=== PATIENT | female | born 1935 ===

== ENCOUNTER 2017-02-01 10:33 | Emergency (ER) | payer MEDICARE, OTHER ==
--- NOTE | 2017-02-01 11:30 | C.PDOC ---
History Of Present Illness 81 y/o female presents to ED with complaints of left leg swelling for 1 week. Patient visited Orthopedic this morning for arthritis and knee pain, which she usually gets shot for and he sent her to ED for an ultrasound after noticing left leg swelling.Patient denies numbness, pain, weakness, sob, chest pain or any other complaints at this time. Time Seen by Provider: 02/01/17 11:10 Chief Complaint (Nursing): Lower Extremity Problem/Injury History Per: Patient History/Exam Limitations: no limitations Onset/Duration Of Symptoms: Days Current Symptoms Are (Timing): Still Present Past Medical History Reviewed: Historical Data, Nursing Documentation, Vital Signs Vital Signs: Last Vital Signs Temp 98.1 F 02/01/17 13:11 Pulse 68 02/01/17 13:11 Resp 18 02/01/17 13:11 BP 170/77 H 02/01/17 13:11 Pulse Ox 98 02/01/17 13:11 - Medical History PMH: Arthritis, HTN, Hypercholesterolemia, Hypothyroidism Family History: States: Unknown Family Hx - Social History Hx Tobacco Use: No Hx Alcohol Use: No Hx Substance Use: No - Immunization History Hx Tetanus Toxoid Vaccination: Yes (11/2009) Hx Influenza Vaccination: Yes (2015) Hx Pneumococcal Vaccination: Yes (07/2012) Review Of Systems Constitutional: Negative for: Weakness, Malaise Cardiovascular: Negative for: Chest Pain, Palpitations, Orthopnea Respiratory: Negative for: Shortness of Breath, Wheezing Gastrointestinal: Negative for: Vomiting, Abdominal Pain, Diarrhea Musculoskeletal: Negative for: Leg Pain Neurological: Negative for: Weakness, Headache, Dizziness Physical Exam - Physical Exam Appears: Non-toxic, No Acute Distress Skin: Warm, Dry, No Diaphoretic, No Pale Head: Atraumatic, Normacephalic Eye(s): bilateral: Normal Inspection Oral Mucosa: Moist Neck: Normal ROM Chest: Symmetrical Cardiovascular: Rhythm Regular, No Murmur Respiratory: Normal Breath Sounds, No Rales, No Rhonchi, No Wheezing Extremity: Normal ROM, No Tenderness, No Calf Tenderness, Swelling (left lower extremity swelling), Other (Varicose Veins bilateral) Pulses: Left Dorsalis Pedis: Normal, Right Dorsalis Pedis: Normal Neurological/Psych: Oriented x3, Normal Speech Gait: Steady ED Course And Treatment O2 Sat by Pulse Oximetry: 99 (Room air ) Pulse Ox Interpretation: Normal Medical Decision Making Medical Decision Making: Venous doppler performed and negative for any DVT 1252 spoke with Emilio TURNER and discussed negative Doppler result. He states patient can follow up with PCP Dr De aL Vega Patient remained afebrile alert and oriented with stable vital signs during ER evaluation. Disposition Counseled Patient/Family Regarding: Need For Followup, Rx Given - Disposition Disposition: HOME/ ROUTINE Disposition Time: 12:56 Condition: STABLE Additional Instructions: Your doppler study was negative, no DVT Please follow up with your primary DR De La Vega in few days Instructions: Leg Edema (ED) - POA Present On Arrival: None - Clinical Impression Clinical Impression: Leg edema - PA / RN [id number] / Resident Statement MD/DO has reviewed & agrees with the documentation as recorded. - Scribe Statement The provider has reviewed the documentation as recorded by the Aurora Galalgher All medical record entries made by the Aurora were at my direction and personally dictated by me. I have reviewed the chart and agree that the record accurately reflects my personal performance of the history, physical exam, medical decision making, and the department course for this patient. I have also personally directed, reviewed, and agree with the discharge instructions and disposition.
[2017-02-01 13:12] VITALS: BP 170/77; PULSE 68; RESP 18; TEMP 98.1
[2017-02-01 18:25] VITALS: O2SAT 99
--- NOTE | 2017-02-05 10:11 | VASCLAB ---
PROCEDURE: Left Lower Extremity Venous Duplex Exam. HISTORY: left leg swelling, poss DVT PRIORS: None. TECHNIQUE: Left common femoral, femoral, popliteal and posterior tibial, peroneal and great saphenous veins were evaluated. Flow was assessed with color Doppler, compressibility, assessment of phasic flow and augmentation response. Report prepared by ophthalmic technologist. FINDINGS: LEFT: 1. Common Femoral Vein: 1.1. Compressibility - Fully compressible: Thrombus - None : Flow - Phasic: Augmentation -Normal: Reflux - None. 2. Femoral Vein: 2.1. Compressibility - Fully compressible: Thrombus - None: Flow - Phasic: Augmentation -Normal: Reflux - None. 3. Popliteal Vein: 3.1. Compressibility - Fully compressible: Thrombus - None: Flow - Phasic: Augmentation -Normal: Reflux - None. 4. Posterior Tibial Vein: 4.1. Compressibility - Fully compressible: Thrombus - None: Flow - Phasic: Augmentation -Normal: Reflux - None. 5. Peroneal Vein: 5.1. Compressibility - Fully compressible: Thrombus - None: Flow - Phasic: Augmentation -Normal: Reflux - None. 6. Great Saphenous Vein: 6.1. Compressibility - Fully compressible: Thrombus - None: Flow - Phasic: Augmentation - Normal: Reflux - Severe. OTHER FINDINGS: Severe valvular incompetence of the left greater saphenous vein. IMPRESSION: No evidence of deep or superficial vein thrombosis of the left lower extremity with excellent venous flow. Normal venous flow noted in the right common femoral vein.
== END 2017-02-01 13:12 | disposition home or self-care (01) ==
LOC: C.ER 10:33
DX: R60.0 Localized edema (principal)

== ENCOUNTER 2018-10-04 06:10 | Emergency (ER) | payer MEDICARE, OTHER ==
--- NOTE | 2018-10-04 06:37 | C.PDOC ---
History Of Present Illness 83 year old female with PMHx of HTN presents to the ED for evaluation of palpitations that started [employer]IST. Patient also reports some dizziness that has now resolved. Patient denies fever, chills, headache, visual changes, SOB, CP, weakn ess, numbness. <Suzi Peterson - Last Filed: 10/04/18 06:47> History Per: Patient History/Exam Limitations: no limitations Onset/Duration Of Symptoms: Hrs Current Symptoms Are (Timing): Still Present Associated Symptoms: Dizziness (resolved) Quality Of Symptoms: Rapid Heart Rate Recent travel outside of the [place]: No Additional History Per: Patient <Suzi Peterson - Last Filed: 10/04/18 06:47> <Sarah Jaffe - Last Filed: 10/04/18 10:17> Time Seen by Provider: 10/04/18 06:36 Chief Complaint (Nursing): Palpitations Past Medical History Reviewed: Historical Data, Nursing Documentation, Vital Signs Vital Signs: Last Vital Signs Temp 98.1 F 10/04/18 06:23 Pulse 67 10/04/18 06:23 Resp 10/04/18 06:23 BP 172/76 H 10/04/18 06:23 Pulse Ox 97 10/04/18 06:23 - Medical History PMH: Arthritis, HTN, Hypercholesterolemia, Hypothyroidism Surgical History: No Surg Hx Family History: States: Unknown Family Hx - Social History Hx Tobacco Use: No Hx Alcohol Use: No Hx Substance Use: No - Immunization History Hx Tetanus Toxoid Vaccination: Yes (11/2009) Hx Influenza Vaccination: Yes (2015) Hx Pneumococcal Vaccination: Yes (07/2012) <Suzi Peterson - Last Filed: 10/04/18 06:47> Vital Signs: Last Vital Signs Temp 98.1 F 10/04/18 06:23 Pulse 72 10/04/18 07:00 Resp 10/04/18 06:23 BP 172/76 H 10/04/18 06:23 Pulse Ox 97 10/04/18 06:50 <Sarah Jaffe - Last Filed: 10/04/18 10:17> Review Of Systems Constitutional: Negative for: Fever, Chills Cardiovascular: Positive for: Palpitations. Negative for: Chest Pain Respiratory: Negative for: Shortness of Breath Gastrointestinal: Negative for: Nausea, Vomiting, Abdominal Pain Skin: Negative for: Rash Neurological: Positive for: Dizziness. Negative for: Weakness, Numbness, Headache <Suzi Peterson - Last Filed: 10/04/18 06:47> Physical Exam - Physical Exam Appears: Non-toxic, No Acute Distress Skin: Normal Color, Warm, Dry Head: Atraumatic, Normacephalic Eye(s): bilateral: Normal Inspection Oral Mucosa: Moist Neck: Normal ROM, Supple Chest: Symmetrical Cardiovascular: Rhythm Regular Respiratory: Normal Breath Sounds, No Rales, No Rhonchi, No Wheezing Gastrointestinal/Abdominal: Soft, No Tenderness, No Guarding, No Rebound Extremity: Normal ROM, No Tenderness, No Swelling Neurological/Psych: Oriented x3, Normal Speech, Normal Cognition Gait: Steady <Suzi Peterson Last Filed: 10/04/18 06:47> ED Course And Treatment ECG: Interpreted By Me, Viewed By Me ECG Rhythm: Sinus Rhythm Rate From EC (BPM) O2 Sat by Pulse Oximetry: 97 (ON RA) Pulse Ox Interpretation: Normal <Suzi Peterson Last Filed: 10/04/18 06:47> - Laboratory Results Result Diagrams: 10/04/18 07:31 10/04/18 07:08 Lab Results: Troponin I < 0.0120 ng/mL (0.00-0.120) 10/04/18 07:08 Total Bilirubin 1.6 mg/dL (0.2-1.3) H 10/04/18 07:08 AST 78 U/L (14-36) H D 10/04/18 07:08 ALT < 6 U/L (9-52) L D 10/04/18 07:08 Alkaline Phosphatase 144 U/L (38-126) H D 10/04/18 07:08 Total Protein 9.2 g/dL (6.3-8.3) H 10/04/18 07:08 Albumin 4.6 g/dL (3.5-5.0) 10/04/18 07:08 Globulin 4.6 gm/dL (2.2-3.9) H 10/04/18 07:08 Albumin/Globulin Ratio 1.0 (1.0-2.1) 10/04/18 07:08 <Sarah Jaffe - Last Filed: 10/04/18 10:17> Progress - Data Reviewed Data Reviewed: Lab, Diagnostic imaging, EKG, Old records <Suzi Peterson Last Filed: 10/04/18 06:47> Medical Decision Making Medical Decision Making: Plan: * EKG * Labs * CXR <Suzi Peterson Filed: 10/04/18 06:47> Disposition - Disposition Disposition Time: 07:00 <Suzi Peterson Last Filed: 10/04/18 06:47> - POA Present On Arrival: None <Sarah Jaffe - Last Filed: 10/04/18 10:17> - Disposition Referrals: Nicho James MD [Staff Provider] - Disposition: HOME/ ROUTINE Condition: STABLE Instructions: Palpitations Forms: [email or web address] (Danish) - Clinical Impression Clinical Impression: Palpitations, Chest pain - Scribe Statement The provider has reviewed the documentation as recorded by the Scribe Yann Buck All medical record entries made by the Scribe were at my direction and personally dictated by me. I have reviewed the chart and agree that the record accurately reflects my personal performance of the history, physical exam, medical decision making, and the department course for this patient. I have also personally directed, reviewed, and agree with the discharge instructions and disposition. <Suzi Peterson Last Filed: 10/04/18 06:47> - Scribe Statement The provider has reviewed the documentation as recorded by the Scribe <Sarah Jaffe - Last Filed: 10/04/18 10:17> Physician Patient Turnover Patient Signed Over To: Sarah Jaffe Handoff Comments: FU LABS, CXR <Suzi Peterson Filed: 10/04/18 06:47> Addendum Addendum: 10/04/18 09:49 Dr. Jaffe Notes: HPI: 83 year old female was endorsed to me By Dr. Peterson at 7am after the end of her shift. The patient reports waking up at 5am today to use the bath with when she began to experience palpitations to left side of the chest. Notes PMD is Dr. James. The patient denies chest pain, dizziness, headache, nausea, vomiting, shortness of breath, and any other associated symptoms. In the ED the patients symptoms have resolved. Appears: Non-toxic, No Acute Distress Skin: Warm, Dry, No Rash Head: Atraumatic, Normacephalic Eye(s): bilateral: Normal Inspection Oral Mucosa: Moist Neck: Normal ROM Chest: Symmetrical Cardiovascular: Rhythm Regular, No Murmur Respiratory: Normal Breath Sounds, No Rales, No Rhonchi, No Wheezing Gastrointestinal/Abdominal: Soft, No Tenderness, No Guarding Extremity: Bilateral: Atraumatic, Normal Color and Temperature Neurological/Psych: Oriented x3, Normal Speech Initial Plan: -EKG Progress/Update: EKG: sinus rhythm. rate: 67. consistent with prior EKG. CXR: preliminary reading: mild pulmonary congestion, although poor imaging. CXR Results: COMPARISON: 07/14/2014 Findings: Mild to moderate venous congestion. Patchy increased markings at the lung bases with some mild nodularity at the right upper lung zone and right lung base. Tortuous ectatic aorta. Mild cardiomegaly. Degenerative changes in the spine and shoulders. Impression: Mild to moderate venous congestion. Patchy increased markings at the lung bases with some mild nodularity at the right upper lung zone and right lung base. Tortuous ectatic aorta. Mild cardiomegaly. Statement: All medical record entries made by the Scribe (Candi Noble) were at my direction and personally dictated by me. I have reviewed the chart and agree that the record accurately reflects my personal performance of the history, physical exam, medical decision making, and the department course for this patient. I have also personally directed, reviewed, and agree with the discharge instructions and disposition. <Sarah Jaffe - Last Filed: 10/04/18 10:17>
[2018-10-04 07:35] LABS: BASO % 0.6 % (0.0-2.0); EOS # 0.2 K/uL (0.0-0.7); EOS % 3.1 % (0.0-4.0); HEMOGLOBIN 11.4 g/dL (11.0-16.0); LYMPH # 0.9 K/uL (1.0-4.3); LYMPH % 13.8 % (20.0-40.0); MEAN CELL VOLUME 92.3 fL (81.0-99.0); MEAN CORPUSCULAR HEMOGLOBIN 31.2 pg (27.0-31.0); MEAN CORPUSCULAR HGB CONC 33.8 g/dL (33.0-37.0); MEAN PLATELET VOLUME 7.6 fL (7.2-11.7); MONO # 0.8 K/uL (0.0-0.8); MONO % 11.2 % (0.0-10.0); NEUT # 4.8 K/uL (1.8-7.0); NEUT % 71.3 % (50.0-75.0); RBC 3.65 Mil/uL (3.80-5.20); RED CELL DISTRIBUTION WIDTH 13.1 % (11.5-14.5); WHITE BLOOD COUNT 6.8 K/uL (4.8-10.8)
[2018-10-04 07:36] LABS: BLOOD UREA NITROGEN 23 mg/dL (7-17); GFR NON-AFRICAN AMERICAN > 60
[2018-10-04 08:03] LABS: ALBUMIN 4.6 g/dL (3.5-5.0)
[2018-10-04 08:19] LABS: CALCIUM 9.4 mg/dl (8.6-10.4)
--- NOTE | 2018-10-04 08:21 | RAD ---
Chest x-ray single frontal view HISTORY: Chest pain. COMPARISON: 07/14/2014 Findings: Mild to moderate venous congestion. Patchy increased markings at the lung bases with some mild nodularity at the right upper lung zone and right lung base. Tortuous ectatic aorta. Mild cardiomegaly. Degenerative changes in the spine and shoulders. Impression: Mild to moderate venous congestion. Patchy increased markings at the lung bases with some mild nodularity at the right upper lung zone and right lung base. Tortuous ectatic aorta. Mild cardiomegaly.
[2018-10-04 08:23] LABS: ALT/SGPT < 6 U/L (9-52); AST/SGOT 78 U/L (14-36)
[2018-10-04 09:28] VITALS: BP 148/78; PULSE 66; RESP 18; TEMP 97.6; O2SAT 96
--- NOTE | 2018-10-08 14:05 | CARD ---
APPROVED REPORT Date of service: 10/04/2018 EKG Measurement Heart [id number] <Conclusion> Sinus rhythm with premature atrial complexes Minimal voltage criteria for LVH, may be normal variant Borderline ECG
== END 2018-10-04 09:47 | disposition home or self-care (01) ==
LOC: C.ER 06:10
DX: R00.2 Palpitations (principal); R07.9 Chest pain, unspecified

== ENCOUNTER 2018-10-31 08:57 | Outpatient (CLI) | payer MEDICARE, OTHER | END 2018-10-31 08:58 | disposition home or self-care (01) | LOC: C.LAB 08:57 | DX: E03.9 Hypothyroidism, unspecified (principal) ==